=== PATIENT | female | born 1950 | race Caucasian/White ===

== ENCOUNTER 2021-01-16 07:14 | Emergency (ER) | payer MEDICARE ==
[2021-01-16] MEDS ORDERED: Sodium Chloride 0.9% 1,000 ML BAG ONE (07:26)
[2021-01-16] MEDS ORDERED: Sodium Chloride 0.9% 500 ML BAG ONE (07:26)
[2021-01-16 08:30] LABS: #Lymphocytes 0.8 thou/uL (1.20-3.40); #Monocytes 0.4 thou/uL (0.11-0.59); #Neutrophils 2.4 thou/uL (1.40-6.50); %Basophils 0.9 % (0.0-1.0); %Eosinophils 0.4 % (0.0-10.0); %Lymphocytes 20.8 % (21.0-51.0); %Monocytes 11.4 % (0.0-10.0); %Neutrophils 66.5 % (42.0-75.0); Large Platelets SLIGHT; MDiff Complete? YES; Mean Corpuscular HGB CONC 31.4 g/dL (32.0-36.0); Mean Corpuscular Hemoglobin 29.6 pg (27.0-31.0); Mean Corpuscular Volume 94.2 fL (78.0-98.0); Mean Platelet Volume 10.1 fL (7.4-10.4); Platelet Count 72 thou/uL (130-400); Platelet Morphology Comment Appears Decreased; RBC Distribution Width 12.2 % (11.5-14.5); RBC Morphology Normal; Red Blood Cell (RBC) Count 6.07 mill/uL (4.20-5.40); White Blood Cell (WBC) Count 3.6 thou/uL (4.8-10.8)
[2021-01-16 08:34] LABS: ALT (SGPT) 32 U/L (8-55); AST (SGOT) 60 U/L (5-34); Albumin 3.6 g/dL (3.4-4.8); Alkaline Phosphatase 218 U/L (40-110); Anion Gap 18 mmol/L (10-20); BUN (Urea Nitrogen) 50 mg/dL (9.8-20.1); Bilirubin, Total 0.3 mg/dL (0.2-1.2); CK (CPK) 96 U/L (29-168); Calc. Creatinine Clearance 0 mL/min (70-130); Carbon Dioxide 19 mmol/L (23-31); Chloride 103 mmol/L (98-107); Glucose 117 mg/dL (80-115); Potassium 4.2 mmol/L (3.5-5.1); Protein, Total 7.6 g/dL (5.8-8.1); Sodium 136 mmol/L (136-145)
[2021-01-16 08:51] LABS: CKMB 3.4 ng/mL (0-6.6)
[2021-01-16] MEDS ORDERED: Dexamethasone 10 MG/ML VIAL ONE (08:54)
[2021-01-16 09:41] LABS: INR-International Normal Ratio 0.9; Prothrombin Time 11.8 sec (12.0-14.7)
[2021-01-16 09:42] LABS: PTT 36.9 sec (22.9-36.1)
[2021-01-16 09:44] LABS: D-Dimer Test 2.87 *mcg/mL (0.27-0.43)
[2021-01-16] MEDS ORDERED: Azithromycin 500 MG VIAL ONE (10:02)
[2021-01-16] MEDS ORDERED: cefTRIAXone\\ROCEPHIN 1 GM VIAL ONE (10:02)
[2021-01-16] MEDS ORDERED: Sodium Chloride 0.9% 100 ML ONE (10:02)
[2021-01-16] MEDS ORDERED: Enoxaparin Sodium 80 MG/0.8 ML SYRINGE ONE (11:14)
[2021-01-16 12:08] LABS: CKMB 3.1 ng/mL (0-6.6)
[2021-01-16 15:33] LABS: Anion Gap 18 mmol/L (10-20); BUN (Urea Nitrogen) 50 mg/dL (9.8-20.1); Calc. Creatinine Clearance 0 mL/min (70-130); Calcium 8.4 mg/dL (7.8-10.44); Carbon Dioxide 16 mmol/L (23-31); Chloride 107 mmol/L (98-107); Glucose 131 mg/dL (80-115); Potassium 4.4 mmol/L (3.5-5.1); Sodium 137 mmol/L (136-145)
[2021-01-16 15:37] LABS: #Lymphocytes 0.5 thou/uL (1.20-3.40); #Monocytes 0.1 thou/uL (0.11-0.59); #Neutrophils 1.9 thou/uL (1.40-6.50); %Basophils 0.5 % (0.0-1.0); %Lymphocytes 18.7 % (21.0-51.0); %Monocytes 5.4 % (0.0-10.0); %Neutrophils 75.4 % (42.0-75.0); Hemoglobin 16.5 g/dL (12.0-16.0); Large Platelets SLIGHT; MDiff Complete? YES; Mean Corpuscular Hemoglobin 29.7 pg (27.0-31.0); Mean Corpuscular Volume 95.9 fL (78.0-98.0); Mean Platelet Volume 13.3 fL (7.4-10.4); Platelet Count 59 thou/uL (130-400); Platelet Morphology Comment Appears Decreased; RBC Distribution Width 12.5 % (11.5-14.5); RBC Morphology Normal; Red Blood Cell (RBC) Count 5.56 mill/uL (4.20-5.40); White Blood Cell (WBC) Count 2.5 thou/uL (4.8-10.8)
[2021-01-16 15:53] LABS: CKMB 3.3 ng/mL (0-6.6)
== END 2021-01-16 15:16 | disposition short-term general hospital (02) ==
LOC: MADERS 07:14
DX: U07.1 COVID-19 (principal); J12.82 Pneumonia due to coronavirus disease 2019; N17.9 Acute kidney failure, unspecified; J96.01 Acute respiratory failure with hypoxia; D72.819 Decreased white blood cell count, unspecified; I21.4 Non-ST elevation (NSTEMI) myocardial infarction; E86.0 Dehydration; D69.6 Thrombocytopenia, unspecified; I10 Essential (primary) hypertension; Z87.891 Personal history of nicotine dependence; Z79.899 Other long term (current) drug therapy
CPT/HCPCS: 71045; 80053; 82274; 82550; 82553; 83880; 84484; 85025; 85379; 85610; 85730; 86140; 86850; 86900; 86901; 87040; 93005; 94760; 96365; 96367; 96372; 96375; J0456; J0696; J1100; J1650; J3490; J7030; J7050